=== PATIENT | female | born 1970 | race Caucasian/White ===

== ENCOUNTER 2017-09-26 10:48 | Emergency (ER) | payer SELFPAY ==
[2017-09-26] MEDS ORDERED: Ondansetron ODT 4 MG TAB ONE (11:24)
[2017-09-26] MEDS ORDERED: diphenhydrAMINE 50 MG/ML VIAL ONE (11:25)
[2017-09-26] MEDS ORDERED: Metoclopramide HCl 10 MG/2 ML VIAL ONE (11:25)
== END 2017-09-26 12:47 | disposition home or self-care (01) ==
LOC: ERS 10:48
DX: G43.909 Migraine, unspecified, not intractable, without status migrainosus (principal); F17.210 Nicotine dependence, cigarettes, uncomplicated
CPT/HCPCS: 96361; 96374; 96375; J1200; J2765; Q0162